=== PATIENT | female | born 1990 | race Caucasian/White ===

== ENCOUNTER 2021-01-14 04:00 | Inpatient (IN) ==
[2021-01-14] MEDS ORDERED: EPHEDrine 50 MG/ML VIAL IVP PRN (08:38)
[2021-01-14] MEDS ORDERED: Epidural Premix (fent/bupiv) 110 ML EP SCH (08:45)
[2021-01-14] MEDS ORDERED: Famotidine 20 MG/2 ML VIAL IVP PRN (08:58)
[2021-01-14] MEDS ORDERED: Lidocaine 1% 20 ML MDV INFILT PRN (08:58)
[2021-01-14] MEDS ORDERED: Metoclopramide 10 MG/2 ML VIAL IVP PRN (08:58)
[2021-01-14] MEDS ORDERED: Naloxone 0.4 MG/ML INJ IVP PRN (08:58)
[2021-01-14] MEDS ORDERED: *HR* Nalbuphine 10 MG/ML AMPUL IV PRN (08:58)
[2021-01-14] MEDS ORDERED: Ringers Solution, Lactated 1,000 ML IVC SCH (09:00)
[2021-01-14] MEDS ORDERED: Penicillin G Potassium 5,000,000 UNIT in 0.9 % Sodium Chloride Mini Bag 100 ML IVPB ONE (09:23)
[2021-01-14] MEDS ORDERED: Oxytocin 20 units/ LR 1000 mL 20 UNIT/1,000 ML BAG IVC SCH ×3 (09:30→20:19)
[2021-01-14] MEDS ORDERED: Ringers Solution, Lactated 1,000 ML ONE (09:39)
[2021-01-14 09:49] LABS: Basophils % 0.3 %; Eosinophils # 0.1 K/mcL (0.0-0.6); Eosinophils % 0.5 %; Hematocrit 36.2 % (35.3-44.9); Hemoglobin 11.3 g/dL (11.5-15.4); Immature Granulocytes % 1.1 % (0-4); Lymphocytes # 1.9 K/mcL (0.6-4.6); Lymphocytes % 18.5 %; Mean Corpuscular HGB Conc 31.2 g/dL (31.6-35.5); Mean Corpuscular Hemoglobin 27.6 pg (28.0-33.3); Mean Corpuscular Volume 88.3 fL (83.0-100.0); Mean Platelet Volume 10.7 fL (9.4-12.4); Monocytes # 0.6 K/mcL (0.0-1.3); Monocytes % 6.3 %; Neutrophils # 7.4 K/mcL (1.6-8.9); Platelet Count 215 K/mcL (140-400); Red Cell Distribution Width 13.7 % (11.5-14.5); Segmented Neutrophils % 73.3 %; White Blood Count 10.1 K/mcL (4.3-11.1)
[2021-01-14 10:08] LABS: Alanine Aminotransferase 8 Units/L (7-52); Aspartate Amino Transferase 13 Units/L (13-39); BUN/Creatinine Ratio 19 (6-26); Blood Urea Nitrogen 10 mg/dL (6-20); Lactate Dehydrogenase 138 Units/L (140-271); Uric Acid 5.6 mg/dL (2.3-7.6); eGFR For African Americans > 60 (> 60); eGFR For Non-African Americans > 60 (> 60)
[2021-01-14 10:39] LABS: Amphetamine Screen,Urine Negative ng/mL (Cutoff=1000); Barbiturate Screen,Urine Negative ng/mL (Cutoff=200); Benzodiazepines Screen,Urine Negative ng/mL (Cutoff=200); Cannabinoid Screen,Urine Negative ng/mL (Cutoff = 50); Cocaine Screen,Urine Negative ng/mL (Cutoff= 300); Opiate Screen,Urine Negative ng/mL (Cutoff=300); Phencyclidine Screen,Urine Negative ng/mL (Cutoff=25)
[2021-01-14 12:36] LABS: Protein/Creatinine Ratio,Urine 0.23 mg/mg (0.00-0.20)
[2021-01-14] MEDS ORDERED: Methylergonovine 0.2 MG/ML AMPUL IM ONE (12:59)
[2021-01-14] MEDS ORDERED: Penicillin G Potassium 2,500,000 UNIT/105 ML MLS IVPB SCH (13:30)
[2021-01-14] MEDS ORDERED: *HR* HYDROmorphone (PF) 1 MG/ML SYRINGE IVP ONE (18:38)
[2021-01-14] MEDS ORDERED: *HR* HYDROmorphone (PF) 1 MG/ML SYRINGE ONE (18:38)
[2021-01-14] MEDS ORDERED: Measles/Mumps/Rubella Vacc 0.5 ML VIAL SQ PRN (20:19)
[2021-01-14] MEDS ORDERED: Rho Immune Globulin 1,500 UNIT SYRINGE IM PRN (20:19)
[2021-01-14] MEDS ORDERED: Lanolin 7 G OINT...G. TP PRN (20:19)
[2021-01-14] MEDS ORDERED: Oxytocin 20 units/ LR 1000 mL 20 UNIT/1,000 ML BAG IVC ONE (20:19)
[2021-01-14] MEDS ORDERED: Benzocaine/Menthol 56 GM AEROSOL SPRAY TP PRN (20:19)
[2021-01-15 07:14] LABS: Basophils % 0.3 %; Eosinophils # 0.1 K/mcL (0.0-0.6); Eosinophils % 0.4 %; Hematocrit 35.1 % (35.3-44.9); Hemoglobin 10.5 g/dL (11.5-15.4); Immature Granulocytes % 0.8 % (0-4); Lymphocytes # 2.3 K/mcL (0.6-4.6); Lymphocytes % 15.5 %; Mean Corpuscular HGB Conc 29.9 g/dL (31.6-35.5); Mean Corpuscular Hemoglobin 27.3 pg (28.0-33.3); Mean Corpuscular Volume 91.2 fL (83.0-100.0); Mean Platelet Volume 11.1 fL (9.4-12.4); Monocytes % 6.3 %; Neutrophils # 11.6 K/mcL (1.6-8.9); Platelet Count 217 K/mcL (140-400); Red Blood Count 3.85 M/mcL (3.82-4.97); Red Cell Distribution Width 13.9 % (11.5-14.5); Segmented Neutrophils % 76.7 %; White Blood Count 15.1 K/mcL (4.3-11.1)
[2021-01-15] MEDS: Prenatal Vit/FA 1 EACH TABLET PO SCH (07:42)
[2021-01-15] MEDS: Acetaminophen 325 MG TABLET PO SCH ×3 (07:44→19:38)
[2021-01-15] MEDS: Ibuprofen 600 MG TABLET PO SCH ×3 (07:44→19:38)
[2021-01-15] MEDS ORDERED: FOS PO SCH (09:00)
[2021-01-15] MEDS ORDERED: [UNRECOGNIZED DRUG - OTHER] PO SCH (09:00)
[2021-01-15] MEDS ORDERED: VIT C PO SCH (09:00)
[2021-01-15] MEDS ORDERED: IRON CARBONYL PO SCH (09:00)
[2021-01-16 08:12] VITALS: BP 132/96
[2021-01-16] MEDS: Prenatal Vit/FA 1 EACH TABLET PO SCH (09:23)
[2021-01-16] MEDS: Ibuprofen 600 MG TABLET PO SCH (09:24)
== END 2021-01-16 13:00 | disposition home or self-care (01) | DRG 542 ==
LOC: 1NENULAB 08:05 → 1NENUOBS 21:47
PROVIDERS: ADMIT Obstetrics & Gynecology; ATTEND Student in an Organized Health Care Education/Training Program